=== PATIENT | male | born 1995 | race Caucasian/White ===

== ENCOUNTER 2019-06-21 22:05 | Emergency (ER) | payer BC ==
[~2019-06-21] VITALS: Ht 182.9 cm; Wt 74.8 kg
[2019-06-21 22:23] VITALS: Ht 182.9 cm; Wt 74.8 kg
[2019-06-22 00:40] VITALS: BP 137/94
== END 2019-06-22 00:40 | disposition home or self-care (01) ==
LOC: ED 22:05
DX: S52.502A Unspecified fracture of the lower end of left radius, initial encounter for closed fracture (principal); W19.XXXA Unspecified fall, initial encounter; Y93.89 Activity, other specified; Y92.89 Other specified places as the place of occurrence of the external cause; Y99.8 Other external cause status
CPT/HCPCS: J1885; J2001; J2270; J2405; J3490; Q0092